=== PATIENT | female | born 1995 | race Caucasian/White ===

== ENCOUNTER 2018-12-17 10:06 | Emergency (ER) | payer OTHER ==
[~2018-12-17] VITALS: Ht 160 cm; Wt 99.8 kg
[~2018-12-17 10:06] MED LIST: KEFLEX500 MG PO; MACRODANTIN100 MG PO; PEPCID20 MG PO; ZOFRAN4 MG PO
[2018-12-17] MEDS ORDERED: FOLIC ACID1 MG (10:25)
== END 2018-12-17 14:34 | disposition home or self-care (01) ==
LOC: ER 10:06
DX: M94.0 Chondrocostal junction syndrome [Tietze] (principal)